=== PATIENT | male | born 1985 | race Caucasian/White ===

== ENCOUNTER 2019-08-30 19:21 | Emergency (ER) | payer OTHER ==
[~2019-08-30] VITALS: Ht 172.7 cm; Wt 70.3 kg
[~2019-08-30 19:21] MED LIST: OMEG300C3 PO
[2019-08-30 19:24] VITALS: BP 117/75
[2019-08-30] MEDS ORDERED: KETOROLAC TROMETHAMINE INJ 30 MG/ML VIAL ONE (19:46)
[2019-08-30] MEDS ORDERED: KETOROLAC TROMETHAMINE INJ 60 MG/2 ML VIAL IM ONE (20:00)
== END 2019-08-30 20:12 | disposition home or self-care (01) ==
LOC: ER 19:23
DX: M54.5 Low back pain (principal); M54.6 Pain in thoracic spine; F17.200 Nicotine dependence, unspecified, uncomplicated; G89.29 Other chronic pain
CPT/HCPCS: 96372; 99283; 99406; J1885